=== PATIENT | male | born 1965 | race Caucasian/White ===

== ENCOUNTER 2024-07-15 18:20 | Emergency (ER) | payer BC ==
[~2024-07-15] VITALS: Ht 185.4 cm; Wt 86.2 kg
[~2024-07-15 18:20] MED LIST: HYDROCODONE MT; Z.0.FLEXERIL10 MG MT; [UNRECOGNIZED DRUG - OTHER] MT
[2024-07-15 18:38] VITALS: PULSE 97; RESP 18; TEMP 98.3
[2024-07-15] MEDS: SODIUM CHLORIDE 0.9% 1000ML 1,000 ML IV STA (19:02)
[2024-07-15 19:44] LABS: BASOPHILS # (AUTO) 0.1 (0.0-0.1); BASOPHILS % 0.3 % (0.0-1.0); EOSINOPHILS # (AUTO) 0.1 (0.0-0.4); EOSINOPHILS % 0.6 % (0.0-6.0); HEMATOCRIT 46.9 % (38.2-49.6); HEMOGLOBIN 15.1 g/dL (14.0-18.0); LYMPHOCYTES # (AUTO) 2.2 (1.0-3.2); MEAN CORPUSCULAR HEMOGLOBIN 34.1 pg (28-32); MEAN CORPUSCULAR HGB CONC 32.2 g/dL (31-35); MEAN CORPUSCULAR VOLUME 105.9 fL (81-99); MONOCYTES # (AUTO) 1.1 (0.2-0.8); MONOCYTES % 7.3 % (4.4-11.3); NEUTROPHILS % 76.8 % (38.7-80.0); PLATELET COUNT 536 x10e3/uL (140-360); RED BLOOD COUNT 4.43 x10e6/uL (4.3-5.7); RED CELL DISTRIBUTION WIDTH 12.6 % (11.7-14.4); WHITE BLOOD COUNT 15.63 x10e3/uL (4.8-10.8)
[2024-07-15 20:14] LABS: ALANINE AMINOTRANSFERASE 39 IU/L (0-55); ALBUMIN/GLOBULIN RATIO 0.6 (0.8-2.0); ALKALINE PHOSPHATASE 94 IU/L (40-150); ANION GAP 18.5 mmol/L (8-16); BILIRUBIN,TOTAL 0.4 mg/dL (0.2-1.2); BLOOD UREA NITROGEN 9 mg/dL (7-26); BUN/CREATININE RATIO 13 (6-25); CALCIUM 9.8 mg/dL (8.4-10.2); CARBON DIOXIDE 24 mmol/L (22-29); CHLORIDE 100 mmol/L (98-107); CREATINE KINASE 255 IU/L (30-200); CREATININE, SERUM 0.71 mg/dL (0.72-1.25); EST GLOMERULAR FILTRATION RATE 106 ML/MIN (>=60); GLUCOSE 113 mg/dL (74-118); POTASSIUM 4.5 mmol/L (3.5-5.1); SODIUM 138 mmol/L (136-145); TOTAL PROTEIN 7.9 g/dL (6.5-8.1)
[2024-07-15] MEDS ORDERED: IOPAMIDOL 370 MG/ML 100 ML INFUS..BTL INJ ONE (20:17)
[2024-07-15 20:22] LABS: TROPONIN I < 0.001 ng/mL (0-0.300)
[2024-07-15] MEDS ORDERED: PREDNISONE20 MG PO (22:11)
[2024-07-15] MEDS ORDERED: VENTOLIN HFA18 GM INH (22:11)
[2024-07-15] MEDS ORDERED: AZITHROMYCIN250 MG PO (22:11)
[2024-07-15 22:17] VITALS: BP 143/78; PULSE 84; RESP 16; TEMP 98.2; O2SAT 98
== END 2024-07-15 22:30 | disposition home or self-care (01) ==
LOC: ER 18:33
DX: R06.02 Shortness of breath (principal); J06.9 Acute upper respiratory infection, unspecified; R05.9 Cough, unspecified; M54.50 Low back pain, unspecified; G89.29 Other chronic pain
CPT/HCPCS: 36415; 71260; 80053; 82550; 83690; 83880; 84484; 85025; 93005; 99284; J7030; Q9967